=== PATIENT | female | born 1945 | race Caucasian/White ===

== ENCOUNTER → 2016-08-06 | Outpatient (CLI) | payer MEDICARE, BC, OTHER ==
--- NOTE | 2016-08-07 07:22 | MM ---
Reason for exam: screening (asymptomatic). Last mammogram was performed 1 year and 1 month ago. History: Patient is postmenopausal. Physical Findings: A clinical breast exam by your physician is recommended on an annual basis and results should be correlated with mammographic findings. MG Screening Mammo w CAD Bilateral CC and MLO view(s) were taken. Prior study comparison: July 17, 2015, bilateral MG screening mammo w CAD. February 01, 2014, bilateral MG screening mammo w CAD. January 31, 2013, bilateral digital screening mammo w/CAD. There are scattered fibroglandular densities. Finding: There are typically benign vascular, round calcifications in both breasts. There is no discrete abnormality. ASSESSMENT: Benign, BI-RAD 2 RECOMMENDATION: Routine screening mammogram of both breasts in 1 year.
== END | disposition home or self-care (01) ==
LOC: RADMAMWWP 09:35
PROVIDERS: ATTEND Family Medicine
DX: Z12.31 Encounter for screening mammogram for malignant neoplasm of breast (principal)

== ENCOUNTER → 2017-09-02 | Outpatient (CLI) | payer MEDICARE, BC, OTHER ==
--- NOTE | 2017-09-03 08:25 | MM ---
Reason for exam: screening (asymptomatic). Last mammogram was performed 1 year and 1 month ago. History: Patient is postmenopausal. Physical Findings: A clinical breast exam by your physician is recommended on an annual basis and results should be correlated with mammographic findings. MG Screening Mammo w CAD Bilateral CC and MLO view(s) were taken. Prior study comparison: August 06, 2016, bilateral MG screening mammo w CAD. July 17, 2015, bilateral MG screening mammo w CAD. There are scattered fibroglandular densities. Benign appearing bilateral calcifications. No suspicious abnormality. No significant changes when compared with prior studies. ASSESSMENT: Benign, BI-RAD 2 RECOMMENDATION: Routine screening mammogram of both breasts in 1 year.
== END | disposition home or self-care (01) ==
LOC: RADMAMWWP 07:31
PROVIDERS: ATTEND Family Medicine
DX: Z12.31 Encounter for screening mammogram for malignant neoplasm of breast (principal)
CPT/HCPCS: 77067

== ENCOUNTER → 2017-10-28 | Outpatient (CLI) | payer MEDICARE, BC, OTHER ==
--- NOTE | 2017-10-28 16:35 | US ---
EXAMINATION TYPE: US carotid duplex BILAT DATE OF EXAM: 10/28/2017 COMPARISON: MRA carotids CLINICAL HISTORY: 72-year-old female R09.89 other signs and symptoms involving. TECHNIQUE: Carotid duplex ultrasound examination. Indirect Doppler criteria was utilized. FINDINGS: EXAM MEASUREMENTS: RIGHT: Peak Systolic Velocity (PSV) cm/sec ----- Right CCA: 101.2 ----- Right ICA: 139.2 ----- Right ECA: 105.2 ICA/CCA ratio: 1.4 RIGHT: End Diastole cm/sec ----- Right CCA: 22.0 ----- Right ICA: 34.7 ----- Right ECA: 10.4 LEFT: Peak Systolic Velocity (PSV) cm/sec ----- Left CCA: 49.5 ----- Left ICA: 296.1 ----- Left ECA: 75.3 ICA/CCA ratio: 6.0 LEFT: End Diastole cm/sec ----- Left CCA: 14.5 ----- Left ICA: 100.8 ----- Left ECA: 14.2 VERTEBRALS (direction of flow): Right Vertebral: Antegrade Left Vertebral: Antegrade Rhythm: Arrhythmia Moderate amount of plaque visualized bilaterally. Elevated velocities visualized in the right distal ICA, left proximal and mid ICA IMPRESSION: 1. Measurements suggest a hemodynamically significant, greater than 70% stenosis of the mid left ICA. 2. There may be moderate (50-69%) stenosis at the distal right ICA versus vessel tortuosity. Criteria for Assigning % of Stenosis / Diameter reduction (Estimation based on the indirect measurements of the internal carotid artery velocities (ICA PSV). 1. Normal (no stenosis)=ICA PSV < 125 cm/s: ratio < 2.0: ICA EDV<40 cm/s. 2. Less than 50% stenosis=ICA PSV < 125 cm/s: ratio < 2.0: ICA EDV<40 cm/s. 3. 50 to 69% stenosis=ICA PSV of 125 to 230 cm/s: ration 2.0 ? 4.0: ICA EDV 40-100 cm/s. 4. Greater than 70% stenosis to near occlusion= ICA PSV > 230 cm/s: ratio > 4.0: ICA EDV > 100 cm/s. 5. Near occlusion= ICA PSV velocities may be low or undetectable: variable ratio and ICA EDV. 6. Total occlusion=unable to detect flow.
== END | disposition home or self-care (01) ==
LOC: RADUSWWP 09:52
PROVIDERS: ATTEND Family Medicine
DX: R09.89 Other specified symptoms and signs involving the circulatory and respiratory systems (principal)
CPT/HCPCS: 93880

== ENCOUNTER → 2018-01-18 | Outpatient (CLI) | payer MEDICARE, BC, OTHER ==
--- NOTE | 2018-01-18 12:12 | CT ---
EXAMINATION TYPE: CT angio neck DATE OF EXAM: 01/18/2018 HISTORY: abnormal ultrasound COMPARISON: Carotid Doppler 10/28/2017 CT DLP: 315 mGycm. Automated Exposure Control for Dose Reduction was Utilized. TECHNIQUE: CTA scan of the neck is performed with IV Contrast, patient injected with 65 mL of Isovue 370, axial images are obtained, coronal and sagittal reformatted images are reviewed. Three-D recons tructed images are created on an independent workstation and reviewed. FINDINGS: Carotid/Vascular Structures: Findings are confirmed from the carotid Doppler. Atheromatous changes pr esent within the common carotid arteries bilaterally at the level of the carotid bulbs, proximal 50-6 9% diameter reduction suspected the proximal internal carotid artery on the right. High-grade stenosi s greater than 70% diameter reduction of the proximal internal carotid artery on the left is confirme d. Vertebrobasilar system is patent. Atheromatous change present within the internal carotid arteries at the level of the siphon. Other: Degenerative disc changes are present in the visualized spine, there is multilevel facet arthr opathy, foraminal encroachment. Mucosal disease present within the maxillary sinus on the right, ethm oid air cells IMPRESSION: High-grade stenosis of the proximal internal carotid artery on the left
== END ==
LOC: RADCTMAIN 09:38
PROVIDERS: ATTEND Internal Medicine Interventional Cardiology
DX: I65.22 Occlusion and stenosis of left carotid artery (principal); Z88.0 Allergy status to penicillin
CPT/HCPCS: 82565; 84520; 70498; 36415; Q9967

== ENCOUNTER → 2018-02-25 | Outpatient (CLI) | payer MEDICARE, BC, OTHER ==
[2018-02-25 11:53] LABS: HGB 10.4 gm/dL (11.4-16.0); MCH 28.2 pg (25.0-35.0); MCHC 32.6 g/dL (31.0-37.0); MCV 86.7 fL (80.0-100.0); Mean Platelet Volume 6.1; Platelet Count 516 k/uL (150-450); RBC 3.69 m/uL (3.80-5.40); RDW 13.5 % (11.5-15.5); WBC 7.8 k/uL (3.8-10.6)
[2018-02-25 12:16] LABS: Potassium 5.3 mmol/L (3.5-5.1)
== END | disposition home or self-care (01) ==
LOC: LABPAT 10:26
PROVIDERS: ATTEND Internal Medicine Interventional Cardiology
DX: Z01.812 Encounter for preprocedural laboratory examination (principal); I65.23 Occlusion and stenosis of bilateral carotid arteries; I10 Essential (primary) hypertension
CPT/HCPCS: 36415; 80051; 82565; 84520; 85027

== ENCOUNTER → 2019-01-17 | Outpatient (CLI) | payer MEDICARE, BC, OTHER ==
--- NOTE | 2019-01-17 11:36 | BD ---
EXAMINATION TYPE: Axial Bone Density DATE OF EXAM: 01/17/2019 COMPARISON: NONE CLINICAL HISTORY: Postmenopausal female Height: 5 FT 1 IN Weight: 177 FRAX RISK QUESTIONS: Secondary Osteoporosis: 3. Menopause before 45: YES RISK FACTORS HISTORY OF: Surgery to Spine/Hip(right/left)/Wrist (right/left): COLLEEN CARPAL TUNNEL SURG Active: NO Postmenopausal woman: TOTAL HYST APPROX 44 Take estrogen and/or progesterone medications: UNSURE MEDICATIONS: Thyroid Medications: YES Which medication: SYNTHROID How Lon MONTHS Additional Medications: SYNTHROID, , GLUCOPHAGE, NORVASC, CRESTOR, PLAVIX, LYRICA Additional History: EXAM MEASUREMENTS: Bone mineral densitometry was performed using the [employer] System. Bone mineral density as measured about the Lumbar spine is: ----- L1-L4(G/cm2): 1.602 T Score Values are as follows: ----- L2: 3.7 ----- L3: 5.5 ----- L4: 3.2 ----- L1-L4:3.5 Bone psychological examiner al density has: INCREASED 2.1 % since study of: 2017 Bone mineral density about the R hip (g/cm2): 0.863 Bone mineral density about the L hip (g/cm2): 0.899 T Score values are as follows: -----R Neck: -1.3 -----L Neck: -1.0 -----R Total: -0.6 -----L Total: -0.3 Bone mineral density has: DECREASED -1.1 % since study of: 2017 IMPRESSION: Normal (Values between +1 and -1 indicate normal bone mass). Consider repeating this study in 5 year s or sooner if there is some new clinical indication. NOTE: T-SCORE=SD OF THE YOUNG ADULT MEAN.
--- NOTE | 2019-01-18 11:54 | MM ---
Reason for exam: screening (asymptomatic). Last mammogram was performed 1 year and 4 months ago. History: Patient is postmenopausal. Physical Findings: A clinical breast exam by your physician is recommended on an annual basis and results should be correlated with mammographic findings. MG Screening Mammo w CAD Bilateral CC and MLO view(s) were taken. Prior study comparison: September 02, 2017, bilateral MG screening mammo w CAD. August 06, 2016, bilateral MG screening mammo w CAD. There are scattered fibroglandular densities. Benign appearing bilateral calcifications. No suspicious abnormality. ASSESSMENT: Benign, BI-RAD 2 RECOMMENDATION: Routine screening mammogram of both breasts in 1 year.
== END | disposition home or self-care (01) ==
LOC: RADMAMWWP 09:56
PROVIDERS: ATTEND Family Medicine
DX: Z12.31 Encounter for screening mammogram for malignant neoplasm of breast (principal); M89.9 Disorder of bone, unspecified
CPT/HCPCS: 77067; 77080

== ENCOUNTER 2021-05-28 07:09 | Day surgery (SDC) | payer MEDICARE, BC, OTHER ==
[~2021-05-28 07:09] MED LIST: LACTATED RINGERS 1,000 ML IV SCH
[2021-05-28 07:36] VITALS: TEMP 96.7
[2021-05-28 07:41] LABS: Glucose,Whole Blood 172 mg/dL (75-99)
[2021-05-28] MEDS ORDERED: PROPOFOL 10 MG/ML 20 ML VIAL IV ONE (08:00)
[2021-05-28] MEDS ORDERED: LIDOCAINE 1% INJ 10MG/ML (20 ML MDV) ONE (08:00)
--- NOTE | 2021-05-28 08:03 | P.GSHP ---
History of Present Illness H&P Date: 05/28/21 Chief Complaint: GI hemorrhage 75-year-old female here today for upper endoscopy. Patient states she was told she was anemic. Last colonoscopy was 5 years ago. She believes that was normal. No abdominal pain. No rectal bleeding or melena but she is seen. Recent hemoglobin 10.9 iron slightly low at 44. Past Medical History Past Medical History: Heart Failure, Diabetes Mellitus, GERD/Reflux, Hyperlipidemia, Hypertension, Osteoarthritis (OA) Additional Past Medical History / Comment(s): LOW HGB. LOWER EXTREMITY EDEMA. History of Any Multi-Drug Resistant Organisms: None Reported Past Surgical History: Hysterectomy, Tonsillectomy Additional Past Surgical History / Comment(s): LEFT CAROTID STENT 2019. Colonoscopy BILAT CATARACTS WITH LENS Past Anesthesia/Blood Transfusion Reactions: No Reported Reaction Past Psychological History: No Psychological Hx Reported Smoking Status: Never smoker Past Alcohol Use History: None Reported Past Drug Use History: None Reported - Past Family History Sister(s) Family Medical History: Deep Vein Thrombosis (DVT) Medications and Allergies Home Medications Medication Instructions Recorded Confirmed Type Acetaminophen [Tylenol] 500 mg PO BID 03/10/18 05/23/21 History Aspirin [Adult Low Dose Aspirin EC] 81 mg PO QAM 03/10/18 05/23/21 History Cholecalciferol [Vitamin D3 (25 5,000 unit PO HS 03/10/18 05/23/21 History Mcg = 1000 Iu)] Ferrous Sulfate [Iron (65 MG 325 mg PO HS 03/10/18 05/23/21 History Elemental)] Glimepiride [Amaryl] 4 mg PO [id number]-[id number] 03/10/18 05/23/21 History Loratadine [Claritin] 20 mg PO HS 03/10/18 05/23/21 History Magnesium 300 mg PO HS 03/10/18 05/23/21 History Multivit-Min/Iron/Folic/Lutein 1 each PO DAILY 03/10/18 05/23/21 History [Centrum Silver Women Tablet] Rosuvastatin Calcium [Crestor] 10 mg PO HS 03/10/18 05/23/21 History amLODIPine [Norvasc] 7.5 mg PO QAM 03/10/18 05/23/21 History Acetaminophen [Tylenol Arthritis] 650 mg PO HS 04/14/18 05/23/21 History Carvedilol [Coreg] 6.25 mg PO BID 05/23/21 05/23/21 History Enalapril [Vasotec] 5 mg PO HS 05/23/21 05/23/21 History Furosemide [Lasix] 20 mg PO QAM 05/23/21 05/23/21 History Levothyroxine Sodium [Synthroid] 50 mcg PO QAM 05/23/21 05/23/21 History Omeprazole 20 mg PO QAM 05/23/21 05/23/21 History Pioglitazone [Actos] 15 mg PO QAM 05/23/21 05/23/21 History Vitamin B Complex 1 cap PO DAILY 05/23/21 05/23/21 History metFORMIN HCL [Glucophage] 1,000 mg PO BID 05/23/21 05/23/21 History Allergies Allergy/AdvReac Type Severity Reaction Status Date / Time Penicillins Allergy makes her Verified 05/28/21 07:30 cry a lot Surgical - Exam Vital Signs Temp Pulse Resp BP Pulse Ox 96.7 F L 81 16 167/88 96 05/28/21 07:32 05/28/21 07:32 05/28/21 07:32 05/28/21 07:32 05/28/21 07:32 Physical exam: General: Well-developed, well-nourished HEENT: Normocephalic, sclerae nonicteric Abdomen: Nontender, nondistended Extremities: No edema Neuro: Alert and oriented Results - Labs Abnormal Lab Results - Last 24 Hours (Table) 05/28/21 Range/Units 07:37 POC Glucose (mg/dL) 172 H (75-99) mg/dL Assessment and Plan (1) GI hemorrhage Narrative/Plan: Will proceed with upper endoscopy Current Visit: Yes Status: Acute Code(s): K92.2 - GASTROINTESTINAL HEMORRHAGE, UNSPECIFIED SNOMED Code(s): 20901251
--- NOTE | 2021-05-28 08:10 | P.PCN ---
Date of Procedure: 05/28/21 Procedure(s) Performed: Preoperative Dx: GI hemorrhage, iron deficiency anemia Postoperative Dx: Mild gastritis, small hiatal hernia Procedure: EGD with Bx Anesthesia: Sedation Endoscopist: Dr. Daily Specimens: Antrum Endoscopic Procedure: The patient was on the endoscopy table in the left decubitus position. The Olympus gastroscope was inserted into the oropharynx and passed under direct visualization to the region of the third portion of the duodenum. From that point the scope was slowly withdrawn inspecting all surfaces carefully. There were no neoplastic inflammatory or polypoid lesions throughout the duodenum. The pylorus was widely patent. The stomach was carefully inspected. There was mild gastritis present. A biopsy of the antrum took place to rule out H. pylori. Retroflexion revealed a small sliding hiatal hernia. The esophagus was then carefully examined. There were no neoplastic inflammatory or polypoid lesions throughout the visualized esophagus. The patient was then taken to the recovery room in stable condition per anesthesia guidelines. Recommendations: Await biopsy results. Continue anemia workup.
[2021-05-28 08:28] VITALS: BP 162/74; PULSE 77; RESP 16
== END 2021-05-28 08:48 | disposition home or self-care (01) ==
LOC: ORWHC2ENDO 07:09
PROVIDERS: ATTEND Surgery
DX: K29.51 Unspecified chronic gastritis with bleeding (principal); K44.9 Diaphragmatic hernia without obstruction or gangrene; D50.9 Iron deficiency anemia, unspecified; I11.0 Hypertensive heart disease with heart failure; I50.9 Heart failure, unspecified; E11.9 Type 2 diabetes mellitus without complications; K21.9 Gastro-esophageal reflux disease without esophagitis; M19.90 Unspecified osteoarthritis, unspecified site; R60.0 Localized edema; Z90.710 Acquired absence of both cervix and uterus; Z98.890 Other specified postprocedural states; Z98.42 Cataract extraction status, left eye; Z98.41 Cataract extraction status, right eye; Z96.1 Presence of intraocular lens; Z82.49 Family history of ischemic heart disease and other diseases of the circulatory system; Z79.84 Long term (current) use of oral hypoglycemic drugs; Z79.82 Long term (current) use of aspirin; Z79.890 Hormone replacement therapy; Z79.899 Other long term (current) drug therapy; Z88.0 Allergy status to penicillin
CPT/HCPCS: 88305; 43239; J2001; J2704

== ENCOUNTER → 2021-09-05 | Outpatient (CLI) | payer MEDICARE, BC, OTHER ==
--- NOTE | 2021-09-06 08:14 | MM ---
Reason for Exam: Screening (asymptomatic). Last mammogram was performed 2 year(s) and 8 month(s) ago. Patient History: Menarche at age 10. First Full-Term at age 18. Left ovary removed at age 39. Right ovary removed at age 39. Hysterectomy at age 39. Postmenopausal. Risk Values: Vivi 5 year model risk: 1.4%. NCI Lifetime model risk: 2.7%. Prior Study Comparison: 08/06/2016 Bilateral Screening Mammogram, [facility]. 09/02/2017 Bilateral Screening Mammogram, [facility]. 01/17/2019 Bilateral Screening Mammogram, [facility]. Tissue Density: The breast tissue is heterogeneously dense. This may lower the sensitivity of mammography. Findings: Analyzed By CAD. There is no suspicious group of microcalcifications or new suspicious mass in either breast. Overall Assessment: Negative, BI-RAD 1 Management: Screening Mammogram of both breasts in 1 year. A clinical breast exam by your physician is recommended on an annual basis and results should be correlated with mammographic findings. Electronically signed and approved by: Dhaval Cope M.D. Radiologis
== END | disposition home or self-care (01) ==
LOC: RADMAMWWP 10:14
PROVIDERS: ATTEND Family Medicine
DX: Z12.31 Encounter for screening mammogram for malignant neoplasm of breast (principal); Z78.0 Asymptomatic menopausal state
CPT/HCPCS: 77063; 77067

== ENCOUNTER → 2022-11-18 | Outpatient (CLI) | payer MEDICARE, BC ==
--- NOTE | 2022-11-20 00:45 | MM ---
Reason for Exam: Screening (asymptomatic). Last mammogram was performed 1 year(s) and 2 month(s) ago. Patient History: Menarche at age 10. First Full-Term at age 18. Left ovary removed at age 39. Right ovary removed at age 39. Hysterectomy at age 39. Postmenopausal. Risk Values: Vivi 5 year model risk: 1.4%. NCI Lifetime model risk: 2.5%. Prior Study Comparison: 09/02/2017 Bilateral Screening Mammogram, [facility]. 01/17/2019 Bilateral Screening Mammogram, [facility]. 09/05/2021 Bilateral MG 3D screening mammo w/cad, [facility]. Tissue Density: There are scattered fibroglandular densities. Findings: Analyzed By CAD. Scattered benign bilateral vascular calcifications are redemonstrated. There is no suspicious group of microcalcifications or new suspicious mass in either breast. Overall Assessment: Benign, BI-RAD 2 Management: Screening Mammogram of both breasts in 1 year. . Patient should continue monthly self-breast exams. A clinical breast exam by your physician is recommended on an annual basis. This exam should not preclude additional follow-up of suspicious palpable abnormalities. Note on Vivi scores and lifetime risk: 1. A Vivi score greater than 3% is considered moderate risk. If this is the case, consider specialist referral to assess eligibility for a risk reducing agent. 2. If overall lifetime risk for the development of breast cancer is 20% or higher, the patient may qualify for future screening with alternating mammogram and breast MRI. Electronically signed and approved by: Randall Vilchis M.D. Radiologist
== END | disposition home or self-care (01) ==
LOC: RADMAMWWP 10:39
PROVIDERS: ATTEND Family Medicine
DX: Z12.31 Encounter for screening mammogram for malignant neoplasm of breast (principal); Z78.0 Asymptomatic menopausal state
CPT/HCPCS: 77063; 77067

== ENCOUNTER → 2023-11-20 | Outpatient (CLI) | payer MEDICARE, BC ==
--- NOTE | 2023-11-24 10:45 | MM ---
Reason for Exam: Screening (asymptomatic). Last screening mammogram was performed 12 month(s) ago. Patient History: Menarche at age 10. First Full-Term at age 18. Left ovary removed at age 39. Right ovary removed at age 39. Hysterectomy at age 39. Postmenopausal. Risk Values: Vivi 5 year model risk: 1.3%. NCI Lifetime model risk: 2.2%. Prior Study Comparison: 01/17/2019 Bilateral Screening Mammogram, [facility]. 09/05/2021 Bilateral MG 3D screening mammo w/cad, [facility]. 11/18/2022 Bilateral MG 3D screening mammo w/cad, [facility]. Tissue Density: The breasts are almost entirely fatty. Findings: Analyzed By CAD. Right breast: There is no suspicious group of microcalcifications or new suspicious mass. Left breast: There is no suspicious group of microcalcifications or new suspicious mass. Overall Assessment: Negative, BI-RAD 1 Management: Screening Mammogram of both breasts in [address] [facility] will attempt to contact patient to return for supplemental views and ultrasound if indicated. Patient should continue monthly self-breast exams. A clinical breast exam by your physician is recommended on an annual basis. This exam should not preclude additional follow-up of suspicious palpable abnormalities. Note on Vivi scores and lifetime risk: 1. A Vivi score greater than 3% is considered moderate risk. If this is the case, consider specialist referral to assess eligibility for a risk reducing agent. 2. If overall lifetime risk for the development of breast cancer is 20% or higher, the patient may qualify for future screening with alternating mammogram and breast MRI. Electronically signed and approved by: Thad Roe DO
== END | disposition home or self-care (01) ==
LOC: RADMAMWWP 09:21
PROVIDERS: ATTEND Family Medicine
DX: Z12.31 Encounter for screening mammogram for malignant neoplasm of breast
CPT/HCPCS: 77063; 77067